=== PATIENT | female | born 1995 | race African-American/Black ===

== ENCOUNTER 2021-08-07 19:40 | Emergency (ER) | payer OTHER ==
[~2021-08-07] VITALS: Ht 165.1 cm; Wt 68.0 kg
--- NOTE | 2021-08-07 20:50 | NUR ---
BIBS FOR C/O N/V SINCE 1300. POSSIBLE COFFE GROUND FOR PAST 2 HOURS. HAD 4 GLASSES OF [place] YESTERDAY. DENIES ABLE TO EAT OR DRINK ANYTHING TODAY D/T N/V. A/OX4. TOLERATING R/A WELL SATTING AT 98%. CONNECTED PT TO POX AND MONITOR.
--- NOTE | 2021-08-07 21:01 | NUR ---
SAMEERA LY AT PT'S BEDSIDE
--- NOTE | 2021-08-07 21:10 | NUR ---
URINE COLLECTED AND SENT TO LAB
[2021-08-07] MEDS ORDERED: ONDANSETRON HCL/PF 4 MG/2 ML VIAL ONE (21:11)
[2021-08-07] MEDS ORDERED: PANTOPRAZOLE 40 MG VIAL ONE (21:11)
--- NOTE | 2021-08-07 21:25 | NUR ---
INITIATED RAC #20G ON NS IVF; PATENT AND INTACT. BLOOD COLLECTED AND GIVEN TO LAB
[2021-08-07] MEDS: ONDANSETRON HCL/PF 4 MG/2 ML VIAL IVP ONE (21:32)
[2021-08-07] MEDS: PANTOPRAZOLE 40 MG VIAL IV ONE (21:32)
[2021-08-07] MEDS: IV NS 0.9% 1,000 ML BAG IV ONE (21:32)
[2021-08-07 22:18] LABS: CALCIUM, SERUM 9.1 mg/dL (8.5-10.1); CREATININE 0.8 mg/dL (0.6-1.3); POTASSIUM 3.7 mmol/L (3.5-5.1)
[2021-08-07 22:20] LABS: BASOPHILS # (AUTO) 0.1 K/uL (0.0-0.2); BASOPHILS % (AUTO) 1.4 % (0.0-2.0); EOSINOPHILS % (AUTO) 1.4 % (0.0-6.0); HEMATOCRIT 44 % (33-45); HEMOGLOBIN 14.4 g/dL (11.5-14.8); LYMPHOCYTES # (AUTO) 2.1 K/uL (0.8-4.8); LYMPHOCYTES % (AUTO) 41.1 % (20.0-44.0); MEAN CORPUSCULAR HGB CONC 33 g/dl (31.0-36.0); MEAN CORPUSCULAR VOLUME 95 fL (82-100); MONOCYTES # (AUTO) 0.4 K/uL (0.1-1.30); MONOCYTES % (AUTO) 8.4 % (2.0-12.0); NEUTROPHILS # (AUTO) 2.4 K/uL (1.8-8.9); NEUTROPHILS % (AUTO) 47.7 % (43.0-81.0); PLATELET COUNT (AUTO) 323 K/uL (150-450); WHITE BLOOD COUNT (AUTO) 5.1 K/uL (4.3-11.0)
[2021-08-07 22:24] LABS: ALBUMIN 4.6 g/dL (3.4-5.0); BILIRUBIN,DIRECT 0.2 mg/dL (0.0-0.2); BILIRUBIN,TOTAL 0.6 mg/dL (0.2-1.0); TOTAL PROTEIN, SERUM 8.7 g/dL (6.4-8.2)
[2021-08-07] MEDS ORDERED: ONDA4TAB5 PO (22:36)
--- NOTE | 2021-08-07 22:45 | NUR ---
Patient discharged to home in stable condition. RX Written and verbal after care instructions given. Patient verbalizes understanding of instruction. PT ambulatory with a steady gait.
[2021-08-07 22:46] VITALS: BP 124/71
== END 2021-08-07 22:47 | disposition home or self-care (01) ==
LOC: ER 19:43
DX: K29.70 Gastritis, unspecified, without bleeding (principal); J45.909 Unspecified asthma, uncomplicated; Z88.1 Allergy status to other antibiotic agents
CPT/HCPCS: 36415; 80048; 80076; 84702; 85025; 96361; 96374; 96375; 99284; C9113; J2405; J7030